=== PATIENT | female | born 1960 | race Two or more races ===

== ENCOUNTER 2022-07-20 07:54 | Day surgery (SDC) | payer OTHER, SELFPAY ==
[2022-07-14 10:30] VITALS: BMI 20.4
--- NOTE | 2022-07-17 08:04 | MHC.SHP ---
Pre-Procedural Eval Section A Date of Service: 07/17/22 The patient is an INPATIENT: No Changes since office visit: No Cold of Flu in the past 2 weeks, No New Medical Problems, No Changes in Medication and No Patient answered all questions The History & Physical has been completed within 30 days and I have reviewed it.: Yes Section B Chief Complaint: Age-related nuclear cataract, right eye Allergies: Allergies Allergy/AdvReac Type Severity Reaction Status Date / Time No Known Allergies Allergy Verified 05/05/22 09:12 Plan Diagnosis/Plan: Unchanged I have reviewed the history and physical and performed a pertinent physical examination on my patient. No changes have occurred unless specified. Time Spent With Patient Time: Total time managing care of this patient today ____ minutes.
--- NOTE | 2022-07-20 06:59 | P.CONAN_ITS ---
Documented by User: Eron Meyer MD 07/20/22 08:49 HPI - Anesthesia Eval Consult details Narrative: Right eye cataract extraction + IOL PMFSH Past Medical History Medical History COVID-19 vaccination declined Elevated cholesterol Forgetfulness Heart murmur Hypothyroid Osteoporosis Renal calculi Thyroid cancer Vocal cord paralysis Family History Family history of problems with anesthesia: No Surgical History Surgical History H/O colonoscopy Hx of thyroidectomy History of Problems with Anesthesia: No Social History Social History Patient Tobacco Use Status: Never used Tobacco Use of substances other than those prescribed or required for medical reasons: No Are you DNR?: No Advance Directives: No Advance Directives Information Provided: Yes (brochure mailed) Advance Directives on File: No Recently lost weight without trying: No Eating poorly because of decreased appetite: No Nutrition Risks: No Nutritional Risk Poor oral hygiene: No Meds Allergies Allergy/AdvReac Type Severity Reaction Status Date / Time No Known Allergies Allergy Verified 05/05/22 09:12 Home Medications Medication Instructions Recorded Confirmed Last Taken Type levothyroxine 150 mcg tablet 1 tab PO QAM 05/05/22 07/14/22 Unknown History Exam Airway Mallampati Class: II TM Dist: >3cm Neck ROM: Full Loose/Missing/Broken Teeth: No Heart: [id number] Lungs: cta b/l Assessment and Plan Assessment Anesthesia Assessment: Anesthesia Plan Discussed and Chart Reviewed Final Anesthetic Review Family History of Problems with Anesthesia: No History of Problems with Anesthesia: No NPO: Yes ASA Class: II Final Preanesthetic Review: No Changes in Pt Med Stat, Meds/Allgs Chart Reviewed, Consent Obtained/Reviewed and Anes Risks/Benef Reviewed Patient Risk: Low Procedure Risk: Low Assessment/Block/Sedation in SS: Assess/Block/Sedation-SS Anesthetic Plan Anesthetic Plan: MAC: and Agree w/ Assess. and Plan Disposition: Standard PACU Documented by User: Shweta Boudreaux MD [facility] Past Medical History Medical History COVID-19 vaccination declined Elevated cholesterol Forgetfulness Heart murmur Hypothyroid Osteoporosis Renal calculi Thyroid cancer Vocal cord paralysis Surgical History Surgical History H/O colonoscopy Hx of thyroidectomy Social History Social History Patient Tobacco Use Status: Never used Tobacco Use of substances other than those prescribed or required for medical reasons: No Are you DNR?: No Advance Directives: No Advance Directives Information Provided: Yes (brochure mailed) Advance Directives on File: No Recently lost weight without trying: No Eating poorly because of decreased appetite: No Nutrition Risks: No Nutritional Risk Poor oral hygiene: No Meds Allergies Allergy/AdvReac Type Severity Reaction Status Date / Time No Known Allergies Allergy Verified 05/05/22 09:12 Active Medications: Current Medications Povidone Iodine (Povidone Iodine 5 % Ophth Soln 30 Ml Bottle) 1 appl EYE-RIGHT PREOP PRN PRN Reason: Pre-Op Surgical Implant Prophy Home Medications Medication Instructions Recorded Confirmed Last Taken Type levothyroxine 150 mcg tablet 1 tab PO QAM 05/05/22 07/14/22 Unknown History Exam Exam Date and Time: July 20, 2022 0659 Height,Weight and Vital Signs: Height 5 ft 4 in Weight 53.977 kg
[2022-07-20 08:41] VITALS: BP 125/75; PULSE 77; RESP 18; TEMP 36.1; O2SAT 98
[2022-07-20] MEDS: Tetracaine HCl/PF 0.5% Oph Sol 4 ML DROPS 1 DROP EYE-RIGHT (08:46)
[2022-07-20] MEDS: Cyclopentolate 1 % Ophth Sol 2 ML DRPBTL 1 DROP EYE-RIGHT ×3 (08:46→08:52)
[2022-07-20] MEDS: Ketorolac Tromethamine 0.5% Op 5 ML DROPS 1 DROP EYE-RIGHT ×3 (08:47→08:52)
[2022-07-20] MEDS: Phenylephrine HCL 2.5% Oph SoL 2 ML BOTTLE 1 DROP EYE-RIGHT ×3 (08:47→08:52)
[2022-07-20] MEDS: Tropicamide 1 % Ophth Sol 3 ML BTL 1 DROP EYE-RIGHT ×3 (08:51→08:54)
--- NOTE | 2022-07-20 09:35 | HO.PNOPHT ---
Ophthalmology Procedure Procedure Date of Service: 07/20/22 Ophthalmology Viscoelastic: Robin Martinezt Dual Pack Pro Ophthalmology Lenses: TECDAVINA [id number] (22) Procedure Notes: PREOPERATIVE DIAGNOSIS: Decreased visual acuity right eye secondary to cataract POSTOPERATIVE DIAGNOSIS: Same PROCEDURE: Right cataract extraction with intraocular lens insertion SURGEON: Hakeem Menard M.D. ANESTHESIA: Topical/MAC ESTIMATED BLOOD LOSS: None COMPLICATIONS: None After obtaining informed consent, the patient was brought to the operating room suite and placed in the supine position. After adequate sedation per anesthesia, topical drops of Tetracaine were given to the right eye. The eye was then prepped and draped in the usual sterile fashion. The operating room microscope was then positioned over the operative eye and a lid speculum placed. A paracentesis was created. Viscoelastic was then instilled into the anterior chamber. A three plane incision was then created temporally, utilizing a 2.85 mm keratome. Capsulotomy forceps were then utilized to create a circular tear capsulotomy. Hydrodissection and hydrodelineation were carried out until adequate mobilization of the nucleus occurred. Phacoemulsification was then utilized to remove the dense central nucleus followed by removal of the cortical material utilizing the automated aspiration irrigation unit. Viscoelastic was instilled into the posterior capsular bag followed by placement of a posterior chamber intraocular lens without difficulty. The residual Viscoelastic was then removed utilizing the automated IA machine. The wound was checked and found to be watertight. The patient tolerated the procedure well and the lid speculum was removed. Intracameral injection of Vigamox 0.1 mL followed by a subtenon injection of Kenalog-40 0.2 mL were administered. The patient will be seen in the a.m.
[2022-07-20 09:54] VITALS: BP 134/70; PULSE 78; RESP 12; TEMP 36.1; O2SAT 100
[2022-07-20 09:59] VITALS: BP 128/70; PULSE 80; RESP 16; TEMP 36.9; O2SAT 100
== END 2022-07-20 10:15 | disposition home or self-care (01) ==
PROVIDERS: PCP Internal Medicine; Visit Provider Ophthalmology
PROC: (CPT 66985; principal; 2022-07-20 07:50)
DX: H25.11 Age-related nuclear cataract, right eye (principal); H54.7 Unspecified visual loss; R01.1 Cardiac murmur, unspecified; E78.00 Pure hypercholesterolemia, unspecified; H35.712 Central serous chorioretinopathy, left eye; I35.0 Nonrheumatic aortic (valve) stenosis; E03.9 Hypothyroidism, unspecified; J38.00 Paralysis of vocal cords and larynx, unspecified; M81.0 Age-related osteoporosis without current pathological fracture; R41.3 Other amnesia; Z85.850 Personal history of malignant neoplasm of thyroid; Z79.899 Other long term (current) drug therapy
CPT/HCPCS: 66984; J3301; V2632

== ENCOUNTER 2022-08-03 07:50 | Day surgery (SDC) | payer OTHER, SELFPAY ==
[2022-07-14 10:40] VITALS: BMI 20.4
--- NOTE | 2022-07-31 10:01 | MHC.SHP ---
Pre-Procedural Eval Section A Date of Service: 07/31/22 The patient is an INPATIENT: No Changes since office visit: No Cold of Flu in the past 2 weeks, No New Medical Problems, No Changes in Medication and No Patient answered all questions The History & Physical has been completed within 30 days and I have reviewed it.: Yes Section B Chief Complaint: Age-related nuclear cataract, left eye Allergies: Allergies Allergy/AdvReac Type Severity Reaction Status Date / Time No Known Allergies Allergy Verified 05/05/22 09:12 Plan Diagnosis/Plan: Unchanged I have reviewed the history and physical and performed a pertinent physical examination on my patient. No changes have occurred unless specified. Time Spent With Patient Time: Total time managing care of this patient today ____ minutes.
--- NOTE | 2022-08-03 07:47 | HO.ANESPROP2 ---
Documented by User: Betina Nathan MD 08/03/22 08:14 [facility] Past Medical History Medical History COVID-19 vaccination declined Elevated cholesterol Forgetfulness Heart murmur Hypothyroid Osteoporosis Renal calculi Thyroid cancer Vocal cord paralysis Patient : Yes Surgical History Surgical History H/O colonoscopy Hx of thyroidectomy Social History Social History Patient Tobacco Use Status: Never used Tobacco Use of substances other than those prescribed or required for medical reasons: No Are you DNR?: No Advance Directives: No Advance Directives Information Provided: Yes (brochure mailed) Advance Directives on File: No Recently lost weight without trying: No Eating poorly because of decreased appetite: No Nutrition Risks: No Nutritional Risk Patient : Yes Poor oral hygiene: No Meds Allergies Allergy/AdvReac Type Severity Reaction Status Date / Time No Known Allergies Allergy Verified 05/05/22 09:12 Home Medications Medication Instructions Recorded Confirmed Last Taken Type levothyroxine 150 mcg tablet 1 tab PO QAM 05/05/22 07/14/22 Unknown History Exam Airway Mallampati Class: II TM Dist: >3cm Neck ROM: Full Loose/Missing/Broken Teeth: No Heart: RRR Lungs: CTA Assessment and Plan Assessment Anesthesia Assessment: Anesthesia Plan Discussed Final Anesthetic Review NPO: Yes ASA Class: II Final Preanesthetic Review: Meds/Allgs Chart Reviewed, Consent Obtained/Reviewed and Anes Risks/Benef Reviewed Patient Risk: Low Procedure Risk: Low Anesthetic Plan Anesthetic Plan: MAC: Disposition: Standard PACU Documented by User: Shweta Boudreaux MD [facility] Past Medical History Medical History COVID-19 vaccination declined Elevated cholesterol Forgetfulness Heart murmur Hypothyroid Osteoporosis Renal calculi Thyroid cancer Vocal cord paralysis Family History Family history of problems with anesthesia: No Surgical History Surgical History H/O colonoscopy Hx of thyroidectomy History of Problems with Anesthesia: No Social History Social History Patient Tobacco Use Status: Never used Tobacco Use of substances other than those prescribed or required for medical reasons: No Are you DNR?: No Advance Directives: No Advance Directives Information Provided: Yes (brochure mailed) Advance Directives on File: No Recently lost weight without trying: No Eating poorly because of decreased appetite: No Nutrition Risks: No Nutritional Risk Patient : Yes Poor oral hygiene: No Meds Allergies Allergy/AdvReac Type Severity Reaction Status Date / Time No Known Allergies Allergy Verified 05/05/22 09:12 Active Medications: Current Medications Lactated Ringer's (Lr) 500 mls @ 20 mls/hr IVCONT .Q24H ISABELLA Home Medications Medication Instructions Recorded Confirmed Last Taken Type levothyroxine 150 mcg tablet 1 tab PO QAM 05/05/22 07/14/22 Unknown History Exam Exam Date and Time: August 03, 2022 0747 Height,Weight and Vital Signs: Height 5 ft 4 in Weight 53.977 kg Assessment and Plan Final Anesthetic Review Family History of Problems with Anesthesia: No History of Problems with Anesthesia: No
[2022-08-03] MEDS: Lactated Ringers 500 ML 20 ML IVCONT (08:07)
[2022-08-03] MEDS: Cyclopentolate 1 % Ophth Sol 2 ML DRPBTL 1 DROP EYE-LEFT ×3 (08:08→08:21)
[2022-08-03] MEDS: Phenylephrine HCL 2.5% Oph SoL 2 ML BOTTLE 1 DROP EYE-LEFT ×3 (08:09→08:21)
[2022-08-03] MEDS: Tropicamide 1 % Ophth Sol 3 ML BTL 1 DROP EYE-LEFT ×3 (08:09→08:21)
[2022-08-03] MEDS: Ketorolac Tromethamine 0.5% Op 5 ML DROPS 1 DROP EYE-LEFT ×2 (08:17→08:21)
[2022-08-03 08:19] VITALS: BP 133/77; PULSE 94; RESP 18; TEMP 36.6; O2SAT 100
--- NOTE | 2022-08-03 08:51 | HO.PNOPHT ---
Ophthalmology Procedure Procedure Date of Service: 08/03/22 Ophthalmology Viscoelastic: Healrubina Martinezt Dual Pack Pro Ophthalmology Lenses: TECDAVINA [id number] (27) Procedure Notes: PREOPERATIVE DIAGNOSIS: Decreased visual acuity left eye secondary to cataract POSTOPERATIVE DIAGNOSIS: Same PROCEDURE: Left cataract extraction with intraocular lens insertion SURGEON: Hakeem Menard M.D. ANESTHESIA: Topical/MAC ESTIMATED BLOOD LOSS: None COMPLICATIONS: None After obtaining informed consent, the patient was brought to the operation room suite and placed in the supine position. After adequate sedation per anesthesia, topical drops of Tetracaine were given to the left eye. The eye was then prepped and draped in the usual sterile fashion. The operating room microscope was then positioned over the operative eye and a lid speculum placed. A paracentesis was created. Viscoelastic was then instilled into the anterior chamber. A three plane incision was then created temporally, utilizing a 2.85 mm keratome. Capsulotomy forceps were then utilized to create a circular tear capsulotomy. Hydrodissection and hydrodelineation were carried out until adequate mobilization of the nucleus occurred. Phacoemulsification was then utilized to remove the dense central nucleus followed by removal of the cortical material utilizing the automated aspiration irrigation unit. Viscoat elastic was instilled into the posterior capsular bag followed by placement of a posterior chamber intraocular lens without difficulty. The residual Viscoat elastic was then removed utilizing the automated IA machine. The wound was check and found to be watertight. The patient tolerated the procedure well and the lid speculum was removed. Intracameral injection of Vigamox 0.1 mL followed by a subtenon injection of Kenalog-40 0.2 mL were administered. The patient will be seen in the a.m.
[2022-08-03 09:44] VITALS: BP 112/61; PULSE 101; RESP 16; TEMP 37.2; O2SAT 100
== END 2022-08-03 09:47 | disposition home or self-care (01) ==
PROVIDERS: PCP Internal Medicine; Visit Provider Ophthalmology
PROC: (CPT 66985; principal; 2022-08-03 09:10)
DX: H25.12 Age-related nuclear cataract, left eye (principal); H54.7 Unspecified visual loss; H35.3131 Nonexudative age-related macular degeneration, bilateral, early dry stage; E03.9 Hypothyroidism, unspecified; I35.0 Nonrheumatic aortic (valve) stenosis; M81.0 Age-related osteoporosis without current pathological fracture; R41.3 Other amnesia; Z85.850 Personal history of malignant neoplasm of thyroid; Z79.899 Other long term (current) drug therapy
CPT/HCPCS: 66984; J3301; V2632